=== PATIENT | male | born 1960 | race African-American/Black ===

== ENCOUNTER 2019-04-01 17:31 | Emergency (ER) | payer BC ==
[~2019-04-01] VITALS: Ht 177.8 cm; Wt 90.0 kg
[~2019-04-01 17:31] MED LIST: AMLO5TAB4 PO; ASA PO; CLOPIDOGREL PO; FERR142T6 PO; LEVO500T2 PO
[2019-04-01] MEDS ORDERED: ONDANSETRON HCL 4MG/2ML INJ IV STA (17:39)
[2019-04-01] MEDS ORDERED: SODIUM CHLORIDE 0.9% 1,000 ML IV ONE (17:39)
[2019-04-01 18:14] VITALS: BP 176/107
[2019-04-01 18:25] LABS: BASOPHILS % 1.1 % (0.0-2.0); EOSINOPHILS % 0.1 % (0.0-5.0); HEMATOCRIT. 44.6 % (42.0-52.0); HEMOGLOBIN. 14.7 g/dL (14.0-18.0); LYMPHOCYTES % 16.3 % (20.0-50.0); MEAN CORPUSCULAR HEMOGLOBIN 28.4 pg (28.0-32.0); MEAN CORPUSCULAR VOLUME 85.9 fL (80.0-94.0); MEAN PLATELET VOLUME 8.8 fl (7.4-10.4); MONOCYTES % 8.6 % (2.0-8.0); NEUTROPHILS % 73.9 % (40.0-76.0); PLATELET 221 x1000/uL (130-400); RED BLOOD CELL COUNT 5.19 mill/uL (4.7-6.1); RED CELL DISTRIBUTION WIDTH 14.2 % (11.6-14.6)
[2019-04-01 18:36] LABS: INR 1.2; PARTIAL THROMBOPLASTIN TIME 24.8 sec (23.4-31.0); PROTHROMBIN TIME 11.8 sec (9.6-11.0)
[2019-04-01 18:47] LABS: CHLORIDE 108 mEq/L (98-107)
[2019-04-01 18:51] LABS: ETHANOL BLOOD < 10 mg/dL
[2019-04-01 18:58] LABS: CREATINE KINASE MB FRACTION 13.2 ng/mL (0.5-3.6)
[2019-04-01 19:06] LABS: CREATINE KINASE 1596 IU/L (39-308)
[2019-04-01 19:11] LABS: *AMPHETAMINES SCREEN URINE NEGATIVE (NEGATIVE); *BARBITURATES SCREEN URINE NEGATIVE (NEGATIVE); *BENZODIAZEPINES SCREEN URINE NEGATIVE (NEGATIVE); *COCAINE SCREEN URINE PRESUMTIVE POSITIVE (NEGATIVE); CANNABINOID URINE SCREEN NEGATIVE (NEGATIVE); METHADONE URINE SCREEN NEGATIVE (NEGATIVE); OPIATES URINE SCREEN NEGATIVE (NEGATIVE)
[2019-04-01 19:12] LABS: PHENCYCLIDINE URINE SCREEN NEGATIVE (NEGATIVE)
== END 2019-04-01 20:00 | disposition left against medical advice (07) ==
LOC: ER 17:31 → CANBEDREQ 21:18
DX: T40.5X1A Poisoning by cocaine, accidental (unintentional), initial encounter (principal); M62.82 Rhabdomyolysis; I10 Essential (primary) hypertension; R79.89 Other specified abnormal findings of blood chemistry; Y92.89 Other specified places as the place of occurrence of the external cause
CPT/HCPCS: 36415; 70450; 71045; 80053; 80305; 80320; 82140; 82550; 82553; 83880; 84443; 84484; 85025; 85610; 85730; 93005; 96361; 96374; 99284; J2405; J7030; Z7610; G0480